=== PATIENT | male | born 1965 | race African-American/Black ===

== ENCOUNTER 2020-11-13 00:17 | Emergency (ER) | payer BC ==
[~2020-11-13] VITALS: Ht 190.5 cm; Wt 91.0 kg
[2020-11-13] MEDS ORDERED: LIDOCAINE HCL/EPINEPHRINE 1%-EPI 1:100,000 20 ML VIAL INFIL ONE ×2 (01:00→03:00)
[2020-11-13] MEDS ORDERED: BACITRACIN ZINC OINT UDPKT TOP ONE (01:00)
[2020-11-13] MEDS ORDERED: AMPICILLIN SOD/SULBACTAM NA 3 G in SODIUM CHLORIDE 0.9% 100 ML IV SCH (02:45)
[2020-11-13] MEDS ORDERED: TETANUS, DIPHTHERIA, PERTUSSIS VAC/PF 0.5ML (>7YR OLD) IM ONE (02:45)
[2020-11-13] MEDS ORDERED: AMOX-424 MT (03:19)
[2020-11-13] MEDS ORDERED: IBUP-2028 MT (03:19)
[2020-11-13] MEDS ORDERED: T3 PO (03:19)
[2020-11-13] MEDS ORDERED: ACETAMINOPHEN WITH CODEINE 300/30MG TABLET PO ONE (03:30)
[2020-11-13 03:45] VITALS: BP 126/86
== END 2020-11-13 04:30 | disposition home or self-care (01) ==
LOC: ER 01:28
DX: S01.81XA Laceration without foreign body of other part of head, initial encounter (principal); S01.511A Laceration without foreign body of lip, initial encounter; V43.52XA Car driver injured in collision with other type car in traffic accident, initial encounter; Y93.89 Activity, other specified; Y92.410 Unspecified street and highway as the place of occurrence of the external cause
CPT/HCPCS: 12014; 90471; 90715; 96374; 99284; A4217; J0295; J3490; J7050; Z7610